=== PATIENT | female | born 1950 ===

== ENCOUNTER → 2021-02-15 | Emergency (ER) | payer OTHER ==
[~2021-02-15] VITALS: Ht 162.6 cm; Wt 88.0 kg
[~2021-02-15] MED LIST: AVALIDE 300-121 EACH; DUI500 PO; SIMVASTATIN20 MG; SINGULAIR10 MG; TOPROL XL50 MG
== END | disposition home or self-care (01) ==
LOC: ER 15:37
DX: S61.422A Laceration with foreign body of left hand, initial encounter (principal); W26.8XXA Contact with other sharp object(s), not elsewhere classified, initial encounter; Y93.89 Activity, other specified; Y92.89 Other specified places as the place of occurrence of the external cause; Y99.8 Other external cause status

== ENCOUNTER 2022-04-27 06:00 | Day surgery (SDC) | payer OTHER | END 2022-04-27 12:20 | disposition home or self-care (01) | LOC: AMB-ENDOS 06:00 | PROVIDERS: ATTEND Colon & Rectal Surgery | DX: K62.6 Ulcer of anus and rectum (principal); K57.30 Diverticulosis of large intestine without perforation or abscess without bleeding; Z20.822 Contact with and (suspected) exposure to COVID-19; I10 Essential (primary) hypertension; J44.9 Chronic obstructive pulmonary disease, unspecified ==